=== PATIENT | male | born 1990 | race Hispanic/Latino ===

== ENCOUNTER 2017-06-01 15:17 | Emergency (ER) | payer OTHER ==
[~2017-06-01] VITALS: Ht 177.8 cm; Wt 90.0 kg
[2017-06-01 15:30] VITALS: BP 149/95; RESP 20; O2SAT 97
--- NOTE | 2017-06-01 16:16 | ED.REPORT ---
HPI-Dental/Mouth Prob Date of Service Jun 01, 2017 ED Provider: Doc,Ed MD History of Present Illness: bit tongue around 930 this am. bleeding lasted about 20 minutes. no primary care. Was throwing wood and a 2 x 4 hit him in the bottom of the jaw and he bit his tongue. Nursing Notes Stated Complaint: BITE TONGUE Chief Complaint: ENT & Mouth Nursing Notes Reviewed: Yes Allergies: Coded Allergies: No Known Allergies (Unverified , 06/01/17) General Time Seen by MD: 16:16 Chief Complaint Other (tongue laceration) Hx Obtained From: Patient Onset Occurred: 9 - 12 hours ago Symptom Duration: Since onset Past Medical History Past Medical History Denies: Asthma, Diabetes mellitus Past Surgical History hand fracture Smoking History Current Every Day Smoker (7 cig a day for 4 years) Social History Alcohol Use: 1-3 per day Drug Use: Denies drug use Occupation lives with girlfriend, work at a [employer] Status Independent Review of Systems Basic Review of Systems Eyes: Vision NL, No discharge Hematologic: No bleeding, No bruising Psychiatric: Normal thought content Physical Exam Initial Vital Signs Vital Signs (First) Date Time Temp Pulse Resp B/P Pulse Ox O2 Delivery O2 Flow Rate FiO2 06/01/17 15:30 36.6 74 20 149/95 97 Room Air Initial VS: Reviewed, Vital signs normal General/Constitutional: Well-developed, Well-nourished Head / Eyes: Atraumatic, Normocephalic, PERRL Respiratory: Breath sounds normal, Clear to auscultation, No respiratory distress Cardiovascular: Regular rate & rhythm, Heart sounds normal, Intact distal pulses Abdomen / GI: Soft, Non-tender, No guarding, No rebound, No distention Back: No CVA tenderness Lymphatic: No lymphadenopathy Extremities: Vascular intact, Neuro intact, No swelling, No tenderness Skin: Warm, Dry, No cyanosis Neurologic: Alert, Oriented, Nonfocal Psychiatric: Mood/affect normal, Behavior normal, Normal thought content 1 cm laceration in body of tongue just to the left of midline. No active bleeding. laceration is in perfect alignment, for the laceration to be visible, he sticks his tongue out and curves it, the laceration opens then but goes back in alignment when the tongue is retracted. Neck: Atraumatic, Supple, No meningismus, Full range of motion General/Constitutional: Awake, Alert, No acute distress, Well appearing, Well developed, Well hydrated Respiratory / Chest: Atraumatic, Breath sounds NL, Breath sounds = bilat, No respiratory distress Cardiovascular: Heart rate NL, Regular rhythm, Heart sounds NL Re-Eval/Medical Decision Med Decision/Clinical Course 27 year old presesnts for evualation of tongue laceration which occured while at work this am. No active bleeding at present. Laceration is in excellent alignment whne tongue is retracted, when he sticks his tongue out, the laceration opens up. . Discussed with DR. Roman. Agrees laceration likely does not need repair but would like to see him tomorrow. Patient informed and note provided for off work tomorrow. No sign of any gapping in the laceration Discharge & Departure Primary Impression: Tongue laceration Encounter type: initial encounter Qualified Code: S01.512A - Laceration without foreign body of oral cavity, initial encounter Disposition: Home Additional Instructions: The laceration on your tongue is about 1/2 inch long. It lays in perfect alignment. I spoke with Dr. Roman at ENT. He would like to see you at 1:40 tomorrow. The [address] is [facility] is [facility]. Avoid orange juice, crunchy foods and spicy food for about 7 days till this has healed. Note for work provided for tomorrow. I am sorry this happened. Referrals: Enrique Roman MD EDSupervising Provider for [facility]: Triston Gary MD copies to: Enrique Roman MD, Sue ARNP Jun 01, 2017 16:16 [place] Jun 01, 2017 16:55
[2017-06-01 17:01] VITALS: BP 140/95; PULSE 56; RESP 20; O2SAT 99
== END 2017-06-01 17:02 | disposition home or self-care (01) ==
LOC: SED 15:17
DX: S01.512A Laceration without foreign body of oral cavity, initial encounter (principal); W22.8XXA Striking against or struck by other objects, initial encounter; Y93.89 Activity, other specified; Y92.69 Other specified industrial and construction area as the place of occurrence of the external cause; Y99.0 Civilian activity done for income or pay; F17.200 Nicotine dependence, unspecified, uncomplicated